=== PATIENT | female | born 1985 | race African-American/Black ===

== ENCOUNTER 2017-12-11 02:12 | Emergency (ER) | payer OTHER ==
[2017-12-11 04:03] VITALS: BP 0/0
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
== END 2017-12-11 04:05 ==
LOC: EDBD → ED 02:12 → MERGE 02:12 → ED 04:05
DX: F10.129 Alcohol abuse with intoxication, unspecified (principal)
CPT/HCPCS: 99284

== ENCOUNTER 2023-02-12 11:13 | Inpatient (IN) ==
[2023-02-12 12:45] LABS: ABS Lymphocytes 0.9 10^3/uL (1.0-4.8); ABS Monocytes 0.7 10^3/uL (0.0-0.9); ABS Neutrophils 7.7 10^3/uL (1.5-7.6); ABS Nucleated RBC 0.01 10^3/ul; Eosinophil % 0.1 %; Hematocrit 38.7 % (35-45); Lymphocyte % 9.6 %; Mean Corpuscular Hemoglobin 32.7 pg (27-33); Mean Corpuscular Hgb Conc 33.7 g/dL (31-36); Mean Platelet Volume 9.3 fL (7.5-11.2); Nucleated Red Blood Cells % 0.1 /100 WBC (0.0-0.4); Platelet Count 209 10^3/uL (150-450); Red Blood Count 3.99 10^6/uL (3.63-4.92); Red Cell Distribution Width 13.1 % (12-17); White Blood Count 9.3 10^3/uL (3.8-11.8)
[2023-02-12 13:05] LABS: ALT 48 U/L (7-52); AST 72 U/L (13-39); Albumin 4.4 g/dL (3.2-5.2); Albumin/Globulin Ratio 1.4 (1-3); Alkaline Phosphatase 69 U/L (35-149); Anion Gap 8 mmol/L (2-16); Blood Urea Nitrogen 14 mg/dL (6-24); CO2 Carbon Dioxide 24 mmol/L (22-32); Calcium 9.2 mg/dL (8.6-10.3); Chloride 101 mmol/L (101-111); Creatinine, Serum 0.68 mg/dL (0.51-0.95); Globulin 3.2 g/dL (2-4); Glucose 106 mg/dL (70-100); Sodium 133 mmol/L (135-145); Total Protein 7.6 g/dL (6.4-8.9); eGFR CKD-EPI 116.4 (>60)
[2023-02-12 13:11] LABS: HCG Pregnancy 1.22 mIU/mL
[2023-02-12 13:27] LABS: Acetaminophen < 15 mcg/mL; Alcohol, S < 13 mg/dL (<13); Salicylate < 2.50 mg/dL (<30)
[2023-02-12 13:37] LABS: TSH Ultra Thyroid Stim Horm 0.48 mcIU/mL (0.34-5.60)
[2023-02-12] MEDS ORDERED: Al Hydrox/Mg Hydrox/Simet LIQ 30 ML UDC PO PRN (16:16)
[2023-02-12] MEDS ORDERED: Nicotine GUM 2MG FRUIT FLAVOR PO PRN (17:00)
[2023-02-13 07:57] LABS: HDL Cholesterol 67.9 mg/dL
[2023-02-13] MEDS: Vitamin THERAPEUTIC TAB PO SCH (13:56)
[2023-02-13] MEDS: Nicotine PATCH 21 MG/24 HR PATCH TRANSDERM SCH (13:56)
[2023-02-14] MEDS: Nicotine PATCH 21 MG/24 HR PATCH TRANSDERM SCH (11:50)
[2023-02-14] MEDS: Vitamin THERAPEUTIC TAB PO SCH (11:50)
[2023-02-15] MEDS: Nicotine PATCH 21 MG/24 HR PATCH TRANSDERM SCH (09:11)
[2023-02-15] MEDS: Vitamin THERAPEUTIC TAB PO SCH (09:12)
[2023-02-16] MEDS: Vitamin THERAPEUTIC TAB PO SCH (08:49)
[2023-02-16] MEDS: Nicotine PATCH 21 MG/24 HR PATCH TRANSDERM SCH (08:49)
[2023-02-17] MEDS: Nicotine PATCH 21 MG/24 HR PATCH TRANSDERM SCH (10:06)
[2023-02-17] MEDS: Vitamin THERAPEUTIC TAB PO SCH (10:06)
[2023-02-18] MEDS: Nicotine PATCH 21 MG/24 HR PATCH TRANSDERM SCH (08:45)
[2023-02-18] MEDS: Vitamin THERAPEUTIC TAB PO SCH (08:45)
[2023-02-18 09:36] VITALS: BP 110/60
== END 2023-02-18 13:25 | disposition home or self-care (01) | DRG 812 ==
LOC: ED 11:13 → BSU 15:29
PROVIDERS: ADMIT Psychiatry & Neurology Psychiatry; ATTEND Psychiatry & Neurology Psychiatry